=== PATIENT | male | born 1970 | race Caucasian/White ===

== ENCOUNTER 2024-12-13 18:58 | Outpatient (RCR) | payer BC, SELFPAY | END 2024-12-21 07:33 | disposition home or self-care (01) | LOC: RPT 18:58 | PROVIDERS: ATTENDING PHYSICIAN Physician Assistant Surgical; FAMILY PHYSICIAN Registered Nurse | DX: M79.652 Pain in left thigh (principal); S76.8 Injury of other specified muscles, fascia and tendons at thigh level; Z73.6 Limitation of activities due to disability; M62.81 Muscle weakness (generalized); R26.89 Other abnormalities of gait and mobility; Z98.890 Other specified postprocedural states | CPT/HCPCS: 97110; 97140; 97162; 97530 ==

== ENCOUNTER → 2025-02-12 08:03 | Outpatient (REF) | payer BC, SELFPAY ==
[2025-02-12 09:34] LABS: % Basophils 0.8 % (0-2); % Eosinophils 6.3 % (0-6); % Immature Granulocytes 0.5 % (0-0.5); % Lymphocytes 28.1 % (20.5-51.1); % Monocytes 8.7 % (1.7-9.3); % Neutrophils 55.6 % (42.2-75.2); Absolute Basophils 0.1 10^3/uL (0-0.2); Absolute Eosinophils 0.5 10^3/uL (0-0.7); Absolute Lymphocytes 2.2 10^3/uL (1.2-3.4); Absolute Monocytes 0.7 10^3/uL (0.1-0.6); Absolute Neutrophils 4.3 10^3/uL (1.4-6.5); Hematocrit 43.9 % (39.0-52.0); Hemoglobin 15.6 g/dL (13.0-18.0); Mean Corp Hgb Conc. 35.5 g/dL (33.0-37.0); Mean Corpuscular Hgb 33.3 pg (27.0-31.0); Mean Corpuscular Volume 93.6 fL (80.0-94.0); Mean Platelet Volume 9.4 fL (7.4-10.4); Nucleated Red Blood Cells % 0 % (-); Platelet Count 302 10^3/uL (130-400); Red Blood Cell Count 4.69 10^6/uL (4.70-6.10); Red Cell Dist. Width 13.2 % (11.5-14.5); White Blood Cell Count 7.7 10^3/uL (4.8-10.8)
[2025-02-12 10:36] LABS: ALT (SGPT) 30 U/L (0-50); AST (SGOT) 33 U/L (17-59); Alkaline Phosphatase 64 U/L (38-126); Blood Urea Nitrogen 24 mg/dl (9-20); Calcium 9.9 mg/dl (8.4-10.2); Carbon Dioxide 25 mmol/L (22-30); Chloride 106 mmol/L (98-107); Glucose 90 mg/dl (70-99); HDL Cholesterol 82 mg/dl; LDL Cholesterol, Calculated 124 mg/dl; Potassium 4.8 mmol/L (3.5-5.1); Sodium 143 mmol/L (135-145); Total Bilirubin 0.6 mg/dl (0.2-1.3); Total Cholesterol 223 mg/dl (50-199); Total Protein 7.6 g/dl (6.3-8.2); Triglyceride 85 mg/dl (10-149); Very Low Density Lipoprotein 17 mg/dl (0-30); eGFR > 60.00
[2025-02-12 10:42] LABS: PSA, Total - Screen 1.44 ng/ml (0.0-4.0); TSH Reflex To Free T4 4.38 uIU/ml (0.47-4.68)
== END ==
LOC: REG 08:03
PROVIDERS: ATTENDING PHYSICIAN Registered Nurse
DX: Z00.00 Encounter for general adult medical examination without abnormal findings (principal); I10 Essential (primary) hypertension; E78.1 Pure hyperglyceridemia; J44.9 Chronic obstructive pulmonary disease, unspecified
CPT/HCPCS: 36415; 80053; 80061; 84443; 85025; G0103